=== PATIENT | female | born 1995 | race Caucasian/White ===

== ENCOUNTER 2016-09-29 03:54 | Emergency (ER) | payer MEDICAID, OTHER ==
[~2016-09-29] VITALS: Ht 165.1 cm; Wt 69.4 kg
[~2016-09-29 03:54] MED LIST: IBUPROFEN200 M2 ORAL; KEFLEX500 MG ORAL
[2016-09-29 04:20] VITALS: BP 126/71
[2016-09-29] MEDS ORDERED: KEFLEX500 MG ORAL (04:37)
--- NOTE | 2016-09-29 04:38 | Emergency Room Report ---
History of Present Illness General Chief Complaint: Female Urogenital Problems Source: Patient Present Illness [facility] This is a 21-year-old female with no past medical history. She presents with chief complaint of urinary frequency, urgency, dysuria, and hematuria. She took [id number] Pyridium an hour prior to arrival. Similar symptom in the past. Denies any other complaint. No back pain. No vomiting. Allergies: Coded Allergies: No Known Allergies (Unverified , 09/30/13) Patient History Past Medical History: see triage record, old chart reviewed Past Surgical History: none Pertinent Family History: none Social History: Denies: smoking Last Menstrual Period: aug Now: No Immunizations: other Reviewed Nursing Documentation: PMH: Agreed, PSxH: Agreed Nursing Documentation-PMH Hx Cardiac Problems: No - von willebrand disease Review of Systems Eye: Denies: blurred vision, eye pain ENT: Denies: ear pain, nose congestion, throat swelling Respiratory: Denies: cough, shortness of breath Cardiovascular: Denies: chest pain, palpitations Gastrointestinal: Denies: abdominal pain, diarrhea, nausea, vomiting Genitourinary: Reports: dysuria, frequency, hematuria, urgency Musculoskeletal: Denies: back pain, joint pain Skin: Denies: rash Neurological: Denies: headache, numbness Endocrine: Denies: increased thirst, increased urine Hematologic/Lymphatic: Denies: easy bruising All Other Systems: negative except mentioned in HPI Physical Exam Vital Signs Date Time Temp Pulse Resp B/P Pulse Ox O2 Delivery O2 Flow Rate FiO2 09/29/16 04:13 97.0 101 16 121/69 100 Room Air vitals normal Sp02 EP Interpretation: reviewed, normal General Appearance: well appearing, no apparent distress, alert Head: normocephalic, atraumatic Eyes: bilateral eye EOMI, bilateral eye PERRL ENT: hearing grossly normal, normal pharynx Neck: full range of motion, supple, no meningismus Respiratory: chest non-tender, lungs clear, normal breath sounds Cardiovascular #1: regular rate, rhythm, no murmur Gastrointestinal: normal bowel sounds, non tender, no mass, no organomegaly, no bruit, non-distended Musculoskeletal: back normal, gait/station normal, normal range of motion Psychiatric: mood/affect normal Skin: warm/dry Medical Decision Making Diagnostic Impression: Primary Impression: UTI (lower urinary tract infection) ER Course Patient presents with UTI. No evidence of nephritis. No evidence of sepsis. We'll discharge him. Last Vital Signs Date Time Temp Pulse Resp B/P Pulse Ox O2 Delivery O2 Flow Rate FiO2 09/29/16 04:13 97.0 101 16 121/69 100 Room Air Status: improved Disposition: HOME, SELF-CARE Condition: Stable Scripts Cephalexin* (KEFLEX*) 500 Mg Capsule 500 MG ORAL TID, #21 CAP 0 Refills Prov: RODRIGO OLIVA M.D. 09/29/16 Patient Instructions: Urinary Tract Infection Additional Instructions: Followup with your Dr. in 2-3 days. Return if symptom worsen. RODRIGO OLIVA M.D. Sep 29, 2016 04:38
[2016-09-29 04:40] VITALS: BP 126/71
[2016-09-29] MEDS ORDERED: Cephalexin 500mg cap ORAL ONE (04:45)
== END 2016-09-29 04:50 | disposition home or self-care (01) ==
LOC: EMR 04:41
DX: N39.0 Urinary tract infection, site not specified (principal); D68.0 Von Willebrand disease
CPT/HCPCS: 87086; 99283

== ENCOUNTER 2017-06-17 10:34 | Emergency (ER) | payer OTHER ==
[~2017-06-17] VITALS: Ht 165.1 cm; Wt 72.6 kg
[2017-06-17 10:39] VITALS: BP 129/81
[2017-06-17 11:56] LABS: APPEARANCE,URINE CLOUDY; KETONES,URINE NEGATIVE (NEGATIVE); LEUKOCYTE ESTERASE ,URINE NEGATIVE (NEGATIVE); NITRITE,URINE NEGATIVE (NEGATIVE); PH,URINE 8 (4.5-8.0); PROTEIN,URINE NEGATIVE (NEGATIVE); UROBILINOGEN,URINE NORMAL MG/DL (0.0-1.0)
[2017-06-17 12:13] LABS: BACTERIA,URINE FEW /HPF; SQUAMOUS EPITHELIAL CELL,UR MODERATE /LPF (NONE/OCC); WBC,URINE 0-2 /HPF (0 - 2)
[2017-06-17 13:25] VITALS: BP 124/75
[2017-06-17 13:41] LABS: BASOPHILS % (AUTO) 1.4 % (0.0-2.0); EOSINOPHILS % (AUTO) 2.3 % (0.0-3.0); LYMPHOCYTES % (AUTO) 20.6 % (20.0-45.0); MEAN CORPUSCULAR HEMOGLOBIN 30.7 PG (27.0-31.0); MEAN CORPUSCULAR HGB CONC 32.2 G/DL (32.0-36.0); MEAN CORPUSCULAR VOLUME 95 FL (80-99); MEAN PLATELET VOLUME 5.9 FL (6.5-10.1); MONOCYTES % (AUTO) 8.5 % (1.0-10.0); NEUTROPHILS % (AUTO) 67.2 % (45.0-75.0); PLATELET COUNT 351 K/UL (150-450); RED BLOOD COUNT 4.44 M/UL (4.20-5.40); RED CELL DISTRIBUTION WIDTH 11.7 % (11.6-14.8); WHITE BLOOD COUNT 7.7 K/UL (4.8-10.8)
--- NOTE | 2017-06-18 09:20 | Emergency Room Report ---
History of Present Illness General Chief Complaint: Complications Source: Patient Present Illness HPI This is 22-year-old female presented after increased abdominal pain. Patient prior history of von Willebrand disease. She reports having increased pain to the lower abdomen. This is described as a sharp pain. The patient reportedly was but has irregular menses. She reports having a last menstrual period in March. Allergies: Coded Allergies: No Known Allergies (Unverified , 09/30/13) Patient History Past Medical History: see triage record Last Menstrual Period: mar 2017 Now: Yes : 2 Para: 0 Reviewed Nursing Documentation: PMH: Agreed, PSxH: Agreed Nursing Documentation-PMH Past Medical History: No History, Except For Hx Cardiac Problems: No - von willebrand disease Review of Systems All Other Systems: negative except mentioned in HPI Physical Exam Vital Signs Date Time Temp Pulse Resp B/P (MAP) Pulse Ox O2 Delivery O2 Flow Rate FiO2 06/17/17 10:39 97.9 95 16 129/81 99 Room Air Sp02 EP Interpretation: reviewed, normal General Appearance: normal inspection, well appearing, no apparent distress, alert, GCS 15 Head: atraumatic ENT: normal ENT inspection, hearing grossly normal, normal voice Neck: normal inspection, full range of motion, supple, no bony tend Respiratory: normal inspection, lungs clear, normal breath sounds, no respiratory distress, no retraction, no wheezing Cardiovascular #1: regular rate, rhythm, no edema Gastrointestinal: normal inspection, normal bowel sounds, non tender, soft, no guarding, no hernia Genitourinary: no CVA tenderness Musculoskeletal: normal inspection, back normal, normal range of motion Neurologic: normal inspection, alert, oriented x3, responsive, feed inspection supervisor III-XII nml as tested, speech normal Psychiatric: normal inspection, judgement/insight normal, mood/affect normal Skin: normal inspection, normal color, no rash Medical Decision Making Diagnostic Impression: Primary Impression: ER Course Patient presented for abdominal pain. Differential diagnosis included was not limited to ruptured ovarian cyst, ectopic , intrauterine , threatened among others. Because of complexity of patient's case laboratory testing and imaging studies were ordered.Pelvic ultrasound read by radiology showed a gestational sac. Patient is advised followup with ASSISTANT BUSINESS MANAGER for reevaluation in 2 days for repeat quantitative beta-hCG. Patient was advised to return if she began having increased pain bleeding, dizziness or other concerns. Patient is advised to return if any worsening condition or if any changes in status that are concerning. Labs Test 06/17/17 10:45 06/17/17 13:00 Urine Color Pale yellow Urine Appearance Cloudy Urine pH 8 (4.5-8.0) Urine Specific [place] 1.015 (1.005-1.035) Urine Protein Negative (NEGATIVE) Urine Glucose (UA) Negative (NEGATIVE) Urine Ketones Negative (NEGATIVE) Urine Occult Blood 1+ (NEGATIVE) Urine Nitrite Negative (NEGATIVE) Urine Bilirubin Negative (NEGATIVE) Urine Urobilinogen Normal MG/DL (0.0-1.0) Urine Leukocyte Esterase Negative (NEGATIVE) Urine RBC 2-4 /HPF (0 - 2) Urine WBC 0-2 /HPF (0 - 2) Urine Squamous Epithelial Cells Moderate /LPF (NONE/OCC) Urine Bacteria Few /HPF (NONE) Urine HCG, Qualitative Positive White Blood Count 7.7 K/UL (4.8-10.8) Red Blood Count 4.44 M/UL (4.20-5.40) Hemoglobin 13.7 G/DL (12.0-16.0) Hematocrit 42.4 % (37.0-47.0) Mean Corpuscular Volume 95 FL (80-99) Mean Corpuscular Hemoglobin 30.7 PG (27.0-31.0) Mean Corpuscular Hemoglobin Concent 32.2 G/DL (32.0-36.0) Red Cell Distribution Width 11.7 % (11.6-14.8) Platelet Count 351 K/UL (150-450) Mean Platelet Volume 5.9 FL (6.5-10.1) Neutrophils (%) (Auto) 67.2 % (45.0-75.0) Lymphocytes (%) (Auto) 20.6 % (20.0-45.0) Monocytes (%) (Auto) 8.5 % (1.0-10.0) Eosinophils (%) (Auto) 2.3 % (0.0-3.0) Basophils (%) (Auto) 1.4 % (0.0-2.0) Human Chorionic Gonadotropin, Quant 9815 mIU/mL (1-6) Last Vital Signs Date Time Temp Pulse Resp B/P (MAP) Pulse Ox O2 Delivery O2 Flow Rate FiO2 06/17/17 13:25 86 16 124/75 97 Room Air 12/5/17 13:25 97.9 Status: unchanged Disposition: HOME, SELF-CARE Condition: Stable Patient Instructions: First Trimester of [place] Jun 18, 2017 09:20
--- NOTE | 2017-06-20 10:09 | Diagnostic Imaging Report ---
Indication:Pain, . Vaginal discharge. Last menstrual period 04/13/2017. Technique: Grayscale and duplex Doppler imaging of the pelvis performed utilizing a transabdominal scan and endovaginal scan. Comparison: None Findings: The uterus measures 7.6 x 4.6 x 4.1 cm. A well-circumscribed hypoechoic structures noted within the endometrial cavity most likely representing a gestational sac. Mean diameter this structure measures approximately 11.7 mm. Questionable yolk sac identified. No definite pole identified. The cervix is closed. The right ovary measures 3.1 x 3.7 x 1.6 cm/9.8 mL. The left ovary measures 3.7 x 2.5 x 2.5 cm/16 mL. Vascular flow to bilateral ovaries is documented. A small amount of free pelvic fluid in the Impression: Probable intrauterine gestational sac with questionable small yolk sac. No definite pole identified. Gestational age by ultrasound by mean gestational sac diameter would be approximately 4 weeks 2 days Findings may be related to early . Clinical correlation recommended. ENVELOPE CUTTER followup and short-term interval repeat ultrasound recommended. No evidence to suggest ovarian torsion at this time. Small amount of free pelvic fluid seen. These findings correspond with the preliminary report issued by the technologist.
== END 2017-06-17 13:29 | disposition home or self-care (01) ==
LOC: EMR 11:22
DX: O26.851 Spotting complicating pregnancy, first trimester (principal); O26.891 Other specified pregnancy related conditions, first trimester; R10.30 Lower abdominal pain, unspecified
CPT/HCPCS: 36415; 76801; 76830; 81003; 81025; 84702; 85025; 99284

== ENCOUNTER 2018-02-08 16:54 | Emergency (ER) | payer MEDICAID, OTHER ==
[~2018-02-08] VITALS: Ht 165.1 cm; Wt 68.0 kg
[2018-02-08 17:13] VITALS: BP 126/77
[2018-02-08 17:42] VITALS: BP 104/68
--- NOTE | 2018-02-08 18:07 | Emergency Room Report ---
History of Present Illness General Chief Complaint: Chest Pain Source: Patient Present Illness HPI 22-year-old female presents ED complaining of chest pain. Started yesterday. Midsternal, sharp, 8 out of 10, nonradiating. Notes pain with deep breaths. Notes history of von Willebrand's factor. Denies smoking or drug use. Denies cardiac history. No other aggravating relieving factors. Denies any other associated symptoms Allergies: Coded Allergies: No Known Allergies (Unverified , 09/30/13) Patient History Past Medical History: other - vWF Past Surgical History: none Pertinent Family History: none Social History: Denies: smoking, alcohol use, drug use Now: No Immunizations: UTD Reviewed Nursing Documentation: PMH: Agreed; PSxH: Agreed Nursing Documentation-PMH Past Medical History: No History, Except For Hx Cardiac Problems: No - von willebrand disease Review of Systems All Other Systems: negative except mentioned in HPI Physical Exam Vital Signs Date Time Temp Pulse Resp B/P (MAP) Pulse Ox O2 Delivery O2 Flow Rate FiO2 02/08/18 17:03 97.8 80 18 126/77 97 Room Air 97.9 Sp02 EP Interpretation: reviewed, normal General Appearance: no apparent distress, alert, GCS 15, non-toxic Head: normocephalic, atraumatic Eyes: bilateral eye normal inspection, bilateral eye PERRL ENT: hearing grossly normal, normal pharynx, no angioedema, normal voice Neck: full range of motion, supple/symm/no masses Respiratory: lungs clear, normal breath sounds, speaking full sentences, other - reproducible midsternal chest wall pain Cardiovascular #1: regular rate, rhythm, no edema Cardiovascular #2: 2+ carotid (R), 2+ carotid (L), 2+ radial (R), 2+ radial (L) , 2+ dorsalis pedis (R), 2+ dorsalis pedis (L) Gastrointestinal: normal bowel sounds, non tender, soft, non-distended, no guarding, no rebound Rectal: deferred Genitourinary: normal inspection, no CVA tenderness Musculoskeletal: back normal, gait/station normal, normal range of motion, non- tender Neurologic: alert, oriented x3, responsive, motor strength/tone normal, sensory intact, speech normal Psychiatric: judgement/insight normal, memory normal, mood/affect normal, no suicidal/homicidal ideation Reflexes: 3+ bicep (R), 3+ bicep (L), 3+ tricep (R), 3+ tricep (L), 3+ knee (R) , 3+ knee (L) Skin: normal color, no rash, warm/dry, well hydrated Lymphatic: no adenopathy Medical Decision Making Diagnostic Impression: Primary Impression: Chest wall pain ER Course Hospital Course 22-year-old female presents ED complaining of reproducible chest wall pain Differential diagnoses include: Rib fracture, MN/unstable angina, contusion, muscle strain Clinical course Patient placed on stretcher. After initial history, physical exam reveals female in no acute distress. There is reproducible midsternal chest wall pain. Lungs clear. Vital stable. No cardiac risk factors. Patient had been here in 2013 with similar chest wall pain. Workup at that time was negative My suspicion for acute cardiac process is low. EKG shows normal sinus rhythm with no acute ischemic changes interpreted by me. Unchanged from 2014 EKG clinical findings consistent with muscle strain/costochondritis. Reassurance given. I. I feel this is a highly complex case requiring extensive working including EKG/Rhythm strip, Xray/CT/US, Blood/urine lab work, repeat exams while in ED, and administration of strong opiates/narcotics for pain control, admission to hospital or close patient follow up. Diagnosis - chest wall pain Stable and discharged to home. Instructed to followup with PMD. Return to ED if symptoms recur or worsen my chest wall pain shortness EKG Diagnostic Results Rate: normal Rhythm: NSR ST Segments: no acute changes ASA given to the pt in ED: No Rhythm Strip Diag. Results EP Interpretation: yes Rhythm: NSR, no PVC's, no ectopy Last Vital Signs Date Time Temp Pulse Resp B/P (MAP) Pulse Ox O2 Delivery O2 Flow Rate FiO2 02/08/18 17:42 97.9 66 15 104/68 98 Room Air 97.9 Status: improved Disposition: HOME, SELF-CARE Condition: Stable Referrals: KERI BERNABE,REFERRING (PCP) Patient Instructions: Chest Wall Pain, [id number] Horace Soto MD Feb 08, 2018 18:07
--- NOTE | 2018-02-09 19:32 | Cardiology Report ---
APPROVED REPORT EKG Measurement Heart [id number] Normal sinus rhythm RSR' or QR pattern in V1 suggests right ventricular conduction delay Borderline ECG
== END 2018-02-08 17:45 | disposition home or self-care (01) ==
LOC: EMR 17:24
DX: R07.89 Other chest pain (principal)
CPT/HCPCS: 93005; 99283